=== PATIENT | male | born 1960 | race Caucasian/White ===

== ENCOUNTER 2017-06-05 15:36 | Emergency (ER) | payer BC ==
[~2017-06-05] VITALS: Ht 180.3 cm; Wt 74.8 kg
[2017-06-05] MEDS ORDERED: NORCO 5-325 TA1 EACH PO (17:19)
[2017-06-05] MEDS ORDERED: IBUPROFEN 800800 M1 PO (17:19)
[2017-06-05 17:42] VITALS: BP 109/72
== END 2017-06-05 17:43 | disposition home or self-care (01) ==
LOC: M.ERS 15:36
DX: S62.636A Displaced fracture of distal phalanx of right little finger, initial encounter for closed fracture (principal); E78.00 Pure hypercholesterolemia, unspecified; J44.9 Chronic obstructive pulmonary disease, unspecified; F17.200 Nicotine dependence, unspecified, uncomplicated; Z88.0 Allergy status to penicillin; W23.0XXA Caught, crushed, jammed, or pinched between moving objects, initial encounter; Y93.89 Activity, other specified; Y92.89 Other specified places as the place of occurrence of the external cause; Y99.8 Other external cause status

== ENCOUNTER 2020-08-14 09:51 | Inpatient (IN) | payer BC ==
[~2020-08-14] VITALS: Ht 180.3 cm; Wt 78.2 kg
[~2020-08-14 09:51] MED LIST: IBUPROFEN 800800 M1 PO; NORCO 5-325 TA1 EACH PO
[2020-08-14 09:53] VITALS: BP 111/73
[2020-08-14] MEDS ORDERED: ADVAIR 100-501 EACH INH (09:55)
[2020-08-14 10:34] LABS: HEMATOCRIT 43.1 % (42.0-52.0); HEMOGLOBIN 14.4 gm/dL (14.0-18.0); MCH 32.6 pg (26.0-34.0); MCHC 33.3 g/dL (28.0-37.0); MCV 98.1 fL (80.0-100.0); MPV 10.2 fl. (7.2-11.1); NUCLEATED RBCS 0 /100WBC; PLATELET COUNT* 108 thou/uL (150-400); RDW-CV 12.8 % (10.5-14.5)
[2020-08-14 10:38] LABS: WBC 0.7 thou/uL (4.0-11.0)
[2020-08-14 10:44] LABS: CALCIUM 8.1 mg/dL (8.5-10.1); CREATININE 2.3 mg/dL (0.6-1.3); POTASSIUM 4.2 mmol/L (3.5-5.1)
[2020-08-14 10:51] LABS: APTT 28.6 Seconds (25.0-31.3); INR 1.2; PROTIME 12.6 Seconds (9.20-11.50)
[2020-08-14 10:58] LABS: ALBUMIN 2.8 g/dL (3.4-5.0); TOTAL BILIRUBIN 0.6 mg/dL (<0.1-1.0); TOTAL PROTEIN 6.6 g/dL (6.4-8.2)
[2020-08-14 11:14] LABS: ABSOLUTE LYMPHOCYTES 0.2 thou/uL (0.8-5.3); ABSOLUTE NEUTROPHILS 0.5 thou/uL (1.6-8.1); PLATELET ESTIMATE ADEQUATE
[2020-08-14 12:07] LABS: BE -7.1 mmol/L (-2 to +3); PCO2 34.8 mmHg (35.0-45.0); PO2 60.5 mmHg (75.0-100.0); pH 7.328 (7.340-7.450)
[2020-08-14] MEDS ORDERED: APAP650 PO (13:49)
[2020-08-14] MEDS ORDERED: NORCO5 PO (13:51)
[2020-08-14 15:30] VITALS: BP 113/78
[2020-08-14 15:40] VITALS: BP 117/79
--- NOTE | 2020-08-14 15:50 | EKG ---
[place] [address] ELECTROCARDIOGRAM REPORT Name: JOSE ROBERTO LEAVITT Room: [address] ADM IN [facility]#: [id number] Admission: 08/14/20 Attend Phys: Bria Tamayo Discharge: Date of : 62 Date of Service: 08/14/20 0958 Report #: [id number] THIS REPORT FOR: //name// [facility] ED Test Date: 2020-08-14 Test Time: 09:58:02 Pat Name: JOSE ROBERTO LEAVITT Department: Room: [facility] Gender: M Communications Program Manager: DIANE : 1960 Requested By: Jaime Carrera Order Number: [id number] MD: Venancio Villarreal Measurements Intervals Hubbard Rate: 83 P: 77 KS: 133 QRS: 47 QRSD: 104 T: 33 QT: 363 QTc: 427 Interpretive Statements Sinus rhythm Atrial premature complex RSR' in V1 or V2, probably normal variant Baseline wander in lead(s) V2 No previous ECG available for comparison Electronically Signed On 08-14-2020 15:49:53 CDT by Venancio Villarreal [email or web address] <ELECTRONICALLY SIGNED> By: Venancio Villarreal MD, [facility] 08/14/20 1549 0958 0958 Venancio Villarreal MD, [facility] /EPI
[2020-08-14 19:07] LABS: ABSOLUTE NEUTROPHILS 0.3 thou/uL (1.6-8.1)
[2020-08-14 19:12] LABS: MCHC 33.8 g/dL (28.0-37.0)
[2020-08-14 19:14] LABS: BASOPHILS 0.1 %; EOSINOPHILS 0.1 %; HEMATOCRIT 41.2 % (42.0-52.0); HEMOGLOBIN 13.9 gm/dL (14.0-18.0); LYMPHOCYTES 11.6 %; MCH 32.8 pg (26.0-34.0); MONOCYTES 3.8 %; MPV 10.2 fl. (7.2-11.1); NUCLEATED RBCS 0 /100WBC; PLATELET COUNT* 107 thou/uL (150-400); POLYS 84.4 %; RBC 4.25 mil/uL (4.50-6.00); RDW-CV 13.2 % (10.5-14.5)
[2020-08-14 19:18] LABS: WBC 0.4 thou/uL (4.0-11.0)
[2020-08-14 19:24] LABS: ALBUMIN 2.5 g/dL (3.4-5.0); CALCIUM 8.1 mg/dL (8.5-10.1); CREATININE 1.7 mg/dL (0.6-1.3); MAGNESIUM 1.6 mg/dL (1.8-2.4); POTASSIUM 4.6 mmol/L (3.5-5.1); TOTAL BILIRUBIN 0.5 mg/dL (<0.1-1.0); TOTAL PROTEIN 6.5 g/dL (6.4-8.2)
[2020-08-14 20:00] VITALS: BP 107/74
--- NOTE | 2020-08-16 18:25 | CON ---
[address] [address] CONSULTATION Name: JOSE ROBERTO LEAVITT Juan Room: [address] IN ..#: [id number] Admission: 08/14/20 Attend Phys: Brigette Oneill Discharge: 08/14/20 Date of : 62 Report #: [id number] THIS REPORT FOR: cc: MEENA - Willa family physician/PCP MEENA - No family physician/PCP Paco Fay MD ~ DATE OF SERVICE: 08/14/2020 REQUESTING PHYSICIAN: Dr. Tamayo. INDICATION FOR CONSULTATION: Acute hypoxemic respiratory failure. HISTORY OF PRESENT ILLNESS: This is a 59-year-old gentleman with extensive history of smoking. The patient does have a history of COPD. The patient is now admitted with increase in shortness of breath for last several days. He is reported to have had a low-grade fever, generalized aches and pains as well. He is reported to have had a recent COVID evaluation at , for which the results are still pending at this time. The patient had reported some back pain and congestion as well over the last several days. Upon arrival, the patient was found to be hypoxemic. At this time, he is currently requiring 75% FiO2 with BiPAP to maintain O2 saturation in the low 90s. He does appear to be comfortable on this. We are not aware of any previous renal failure. The patient currently has a creatinine of 2.3. Therefore, likely this is acute renal failure. He has a low WBC count of 0.7 and a platelet count of 104. There is no swelling of lower extremities or calf pain. The patient answers to the negative for 12 questions for review of systems except as mentioned above; however, his ability to answer questions is limited. He is afebrile. His blood pressure is within the normal range; however, towards the lower end of the normal range. PAST MEDICAL HISTORY: COPD, hyperlipidemia. SOCIAL HISTORY: Has an extensive history of smoking. I am unable to quantify exactly at this time. No known history of heavy alcohol use or illegal drug use. ALLERGIES: REPORTED ALLERGY TO PENICILLIN; HOWEVER, HE HAS BEEN ABLE TO TOLERATE CEPHALOSPORINS. FAMILY HISTORY: No known pertinent family history. CURRENT MEDICATIONS: List in [employer] [place] [address] CONSULTATION Name: JOSE ROBERTO LEAVITT Juan Room: [address]#: [id number] Admission: 08/14/20 Attend Phys: Brigette Oneill Discharge: 08/14/20 Date of : 62 Report #: [id number] HOME MEDICATIONS: List in [employer] also reviewed. PHYSICAL EXAMINATION: GENERAL: He is alert, awake and oriented. VITAL SIGNS: Has a pulse of 99 and a blood pressure of 113/78. He is saturating 93%. He is on a BiPAP of 12/6 with 75% FiO2. He is saturating only 93%. His respiratory rate is variable from 23-33. He is afebrile with a temperature of 36.4. Body mass index is 23. HEENT: Head is normocephalic and atraumatic. Pupils are equal and reactive. There is no throat erythema. Throat examination, however, is limited due to the presence of BiPAP. NECK: Does not show raised JVP, asymmetry, mass or lymph nodes. CHEST: Symmetrical expansion on inspection and palpation. On auscultation, breath sounds are bilaterally equal, but decreased. I do not hear any added sounds. HEART: Regular. There is no murmur. ABDOMEN: Soft and nontender. EXTREMITIES: Lower extremities show no edema and no calf tenderness. SKIN: Dry and intact. NEUROLOGICAL: Moves all extremities bilaterally equally and spontaneously with no focal deficit identified. LABORATORY DATA: The patient's CT chest is reviewed. There are extensive lobar infiltrates bilaterally with significant amounts of atelectasis. There is evidence of emphysema as well. The patient's lab work is as discussed above. He is in acute renal failure. His platelets are mildly decreased. His WBC count is also decreased. He is leukopenic. Cultures are being sent and are pending at this time. The patient's arterial blood gas shows a significant metabolic acidosis. ASSESSMENT AND PLAN: 1. Acute hypoxemic respiratory failure. He does appear to have extensive infiltrates. He does appear to be septic and in acute renal failure. At this time, he is stable on BiPAP; however, I feel that he likely does need more IV fluids. it will be possible that with IV fluids that he needs for sepsis and renal failure. His respiratory status worsens, in which case he may require endotracheal intubation. I therefore recommend that he be transferred to the ICU. I understand the patient is requesting transfer to . I would defer to Dr. Tamayo regarding transfer to in case he is not transferred, I would recommend that he be transferred to the ICU. For now, we can still watch him on BiPAP, but if he declines, then he may require endotracheal intubation. 2. Pulmonary infiltrates/lobar pneumonia with leukopenia. I go ahead and broaden his antibiotics. Unfortunately, chances are limited because of low [facility] [address] [place] [address] CONSULTATION Name: JOSE ROBERTO LEAVITT Room: [address] IN [facility]#: [id number] Admission: 08/14/20 Attend Phys: Brigette Oneill Discharge: 08/14/20 Date of : 62 Report #: [id number] platelets, I would not give him linezolid, would therefore gave him vancomycin. While understanding risk in using vancomycin in renal failure, I would also switch his ceftriaxone to cefepime. We will continue with azithromycin. We will oneil culture and do more serologies. He does have significant atelectasis as well. In case that his blood pressure remains stable, then I will be inclined to give him what as well on the BiPAP for this reason. 3. Chronic obstructive pulmonary disease exacerbation. We will start DuoNebs. He is already receiving Solu-Medrol. 4. Acute renal failure with metabolic acidosis. See discussion as above. If he stays in the hospital, then I will repeat labs and then consider giving him IV fluids. Note that he does have a significant metabolic acidosis and his lactate is also elevated. He received 2 liters of IV fluids since the last creatinine was checked. 5. Evaluation for cardiac function/thromboembolic phenomena. Overall, my suspicion of thromboembolism is low; however, I would suggest checking a D-dimer and if elevated, will do venous Dopplers. We will also do an echo. I would not do a CTA chest. It will be high risk for worsening his renal failure if the same is performed. 6. Deep venous thrombosis prophylaxis, Lovenox. 7. Gastrointestinal prophylaxis. We will order Protonix. 8. Clostridium difficile prophylaxis. For now, held off on a probiotic due to leukopenia. 9. Leukopenia and thrombocytopenia. See discussion as above. 10. The patient is critically ill at this time. Total time spent providing critical care to this patient today exceeds 40 minutes. I discussed with Dr. Tamayo. <ELECTRONICALLY SIGNED> By: Paco Fay MD 08/16/20 1825 [id number] [id number] Fay MD /nt
== END 2020-08-14 22:34 | disposition short-term general hospital (02) | DRG 871 ==
LOC: M.ERS 09:51 → M.TBA-ER 11:08 → M.2W 11:08
PROVIDERS: Family Medicine; Internal Medicine Critical Care Medicine; ADMIT Internal Medicine; ATTEND Internal Medicine
DX: A41.9 Sepsis, unspecified organism (principal); J96.01 Acute respiratory failure with hypoxia; J15.6 Pneumonia due to other Gram-negative bacteria; J44.1 Chronic obstructive pulmonary disease with (acute) exacerbation; N17.9 Acute kidney failure, unspecified; E87.2 Acidosis; J44.0 Chronic obstructive pulmonary disease with (acute) lower respiratory infection; E78.00 Pure hypercholesterolemia, unspecified; E78.5 Hyperlipidemia, unspecified; D72.819 Decreased white blood cell count, unspecified; D69.6 Thrombocytopenia, unspecified; M54.9 Dorsalgia, unspecified; Z88.0 Allergy status to penicillin; Z79.899 Other long term (current) drug therapy